=== PATIENT | male | born 1980 | race Caucasian/White ===

== ENCOUNTER → 2020-11-21 13:17 | Outpatient (CLI) | payer OTHER, SELFPAY ==
--- NOTE | ~2020-11-21 | XR_ITS ---
EXAMINATION: XR fl inj wrist LT for MR/CT DATE: 11/21/2020 14:41 INDICATION: Injury of triangular fibrocartilage complex of left wrist. TECHNIQUE: A time-out was performed to verify the patient's name, date of , and procedure to b e performed. The procedure including the risks, benefits, and alternatives was discussed with the pat ient. Risks discussed included bleeding and infection. The patient understood the risks and agreed to proceed. The skin overlying the left radioscaphoid joint was prepped and draped in usual sterile fas hion. Anesthetic was administered with 1% lidocaine subcutaneously. A 23 G needle was advanced unde r fluoroscopic guidance into the joint. Subsequently, injectate consisting of 2 mL of 1:200 Multihan ce, 1:4 1% lidocaine, and 1:4 Omnipaque 240 was instilled. The needle was removed and the entry site was cleaned and dressed. There were no immediate complications. Fluoroscopy exposure time was 0.1 m inutes. The total number of images was 2. FINDINGS: Real-time fluoroscopy demonstrates the needle and contrast in the left radioscaphoid joint. IMPRESSION: 1. Successful left radioscaphoid joint injection of contrast for subsequent MR arthrography. Reviewed, dictated and finalized at location B. CLERK
--- NOTE | ~2020-11-21 | MR_ITS ---
EXAMINATION: MR wrist LT w con DATE: 11/21/2020 15:04 INDICATION: Injury to the angular fiber cartilage complex of the left wrist presenting with left wris t pain post blunt trauma several months prior. TECHNIQUE: Magnetic resonance imaging (MRI) of the left wrist was performed following intra-articula r gadolinium contrast injection and without intravenous contrast. Details of the left wrist joint inj ection have been dictated separately. Sequences included axial, sagittal and coronal T1-weighted FS FSE and T2-weighted FS FSE and coronal FGRE 3D. COMPARISON: None FINDINGS: Intrinsic ligaments: The scapholunate ligament is normal. There is a tiny perforation of the central membranous component of the lunotriquetral ligament. The dorsal and volar components of the ligament appear to remain inta ct. This results in contrast extension into the midcarpal and second-fifth carpal metacarpal joint sp aces although this is not seen on the initial fluoroscopic images following contrast injection which could be consistent with a tiny tear as observed rather than a larger physiologically significant tea r. Triangular fibrocartilage complex (TFCC): There is a partial tear at the foveal attachment of the triangular fibrocartilage complex which exten ds into the dorsal radioulnar ligament. The foveal attachment and volar radioulnar ligaments are norm al. The central fibrocartilaginous disc also appears grossly intact with a smooth articular surface a nd no intrasubstance contrast were extension of contrast into the distal radioulnar joint. The ulnar collateral ligament and ulnotriquetral ligament are normal. There is a frayed appearance to the meni scal homologue. The extensor carpi ulnaris tendon sheath is normal. Extensor wrist: Extensor tendons of the wrist are normal. No tenosynovitis. Flexor wrist: The flexor tendons of the wrist are normal. No abnormality in the carpal tunnel with normal median n erve. Guyon's canal: Guyon's canal including the ulnar nerve and artery are normal. Bones/other: Normal marrow signal. No fracture, erosions, avascular necrosis or abnormal marrow replacing process. Joint spaces are normal with no focal cartilage defects appreciated. Contrast extends into an 8 x 5 x 8 mm ganglion cyst along the palmar aspect of the ulnar styloid process. IMPRESSION: 1. Partial tear of the dorsal ulnar collateral ligament and ulnar styloid attachment of the triangula r fibrocartilage complex. 2. Tiny perforation of the central portion of the lunotriquetral ligament which is of doubtful clinic al significance. 3. Small ganglion cyst along the palmar aspect of the ulnar styloid process. Reviewed, dictated and finalized at location A. LEASE BROKER IMPRESSION: 1. Partial tear of the dorsal ulnar collateral ligament and ulnar styloid attac hment of the triangular fibrocartilage complex. 2. Tiny perforation of the central portion of the lunotriquetral ligament which is of doubtful clinical significance. 3. Small ganglion cyst along the palmar aspect of the ulnar styloid process.
== END ==
PROVIDERS: Visit Provider Internal Medicine
DX: S69.82XA Other specified injuries of left wrist, hand and finger(s), initial encounter (principal); S63.592A Other specified sprain of left wrist, initial encounter; M67.432 Ganglion, left wrist
CPT/HCPCS: 20605; 73222; 77002; A9577; Q9966

== ENCOUNTER 2025-06-15 19:43 | Emergency (ER) | payer OTHER, SELFPAY ==
--- OUTSIDE RECORDS SUMMARY | 2025-06-15 19:45 | XMS_ITS | Clinical Summary ---
Author Organization [facility] Address [address] [place] [address] Care Team Providers Care Advertising Intern Name Role Phone Inna Ham MD Primary Care Provider [phone] Elliott Lock MD Unavailable Janeth Colon MD Unavailable [phone] Allergies No known active allergies Medications hydroCHLOROthia zide (HYDRODIURIL) 50 mg tablet 9 Active anastrozole (ARIMIDEX) 1 mg tablet TAKE 1 TABLET BY MOUTH ONCE A WEEK 1 Active testosterone cypionate (DEPO-TESTOTERO NE) 200 mg/mL injection ADMINISTER 1 ML IN THE MUSCLE 1 TIME A WEEK 5 Active Hospital, Clinic, or Other Facility Administered Medication Ordered Dose Route Frequency Start Date End Date Status lidocaine (XYLOCAINE) 20 mg/mL (2 %) injection 3 mLIndications:Admi nistration of Local Anesthesia 3 mL One-Time Injection 06/04/2025 06/04/2025 Ended methylPREDNISolone acetate (DEPO-medrol) injection 80 mgIndications:Supe rior glenoid labrum lesion of right shoulder, initial encounter 80 mg intra-artic One-Time Injection 06/04/2025 06/04/2025 Ended Active Problems Problem Noted Date Diagnosed Date Impacted cerumen of left ear 06/01/2022 Assessment & Plan (06/01/2022 8:21 AM CDT): Presents with left ear fullness but no pain. Left ear was flushed with moderate amount of cerumen removed. Post ear exam was normal. Encouraged to avoid q-tip use. 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 Clark and then referred to ELLIOTT Patricio at [place] December 2020= I reviewed his MRI of the left wrist dated November 21, 2020. My personal interpretation is that he has a foveal detachment tear of his TFCC, with a central component of the tear as well. Mixed anxiety depressive disorder 10/05/2012 02/13/2021 Overview (02/02/2017): Depression with anxiety Irritability and anger 10/05/201202/13 Overview (02/04/2017): Anger Gynecomastia 10/05/2012 02/13/2021 Overview (12/15/2020): Gynecomastia secondary androgen supplements Encounters Date Type Department Care Team Description 06/04/2025 2:00 PM CDT Office Visit [facility] [address] [place] [address] [address] [place] [id number] Fernando Willingham NP Right shoulder pain, unspecified chronicity (Primary Dx); Instability of right shoulder joint; Superior glenoid labrum lesion of right shoulder, initial encounter 06/04/2025 7:45 AM CDT - 06/04/2025 11:59 PM CDT Hospital Encounter [facility] [address] [place] [address] [address] [place] [id number] Discharge Disposition: Discharge to home or self care from Last 3 Months Immunizations Immunization Administration Dates Next Due Hep B Vaccine 09/26/2006,05/17/2006,04/05/2006 Tdap 02/13/2021 Surgical History Surgery Date Site/Laterality Comments OTHER SURGICAL HISTORY Appendectomy 2003 APPENDECTOMY Appendectomy [facility] Medical History Medical History Date Comments Hx Other Medical gynecomastia Irritability and anger 10/05/2012 Anger Mixed anxiety depressive disorder 10/05/2012 Depression with anxiety Family History Medical History Relation Name Comments Hypertension Father Arthritis Mother Cancer Mother Cancer Other 1 Family history of cancer; Hypertension Other 2 Family history of Hypertension; Relation Name Status Comments Father Mother Other 1 Other 2 Social History Tobacco Use Types Packs/Day Years Used Date Smoking Tobacco: Never Smokeless Tobacco: Never Tobacco Cessation:Counseling Given: Not Answered Alcohol Use Standard Drinks/Week Comments Never 0 (1 standard drink = 0.6 oz pur e alcohol) AUDIT-C Answer Date Recorded Q1: How often do you have a drink containing alc ohol? 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 [employer] Gender Identity Not on file Sexual Orientation Not on file Obstetrics History Last Filed Vital Signs Vital Sign Reading Time Taken Comments Blood Pressure 126/85 06/04/2025 2:20 PM CDT Pulse 75 06/04/2025 2:20 PM CDT Temperature 36.4 C (97.5 F) 06/01/2022 8:01 AM CDT Respiratory Rate 12 02/13/2021 11:46 AM CDT Oxygen Saturation 98% 06/01/2022 8:01 AM CDT Inhaled Oxygen Concentration - - Weight 83.9 kg (185 lb) 06/04/2025 2:20 PM CDT Height 172.7 cm (5' 8) 06/04/2025 2:20 PM CDT Body Mass Index 28.13 06/04/2025 2:20 PM CDT Plan of Treatment Health Maintenance Due Date Last Done Comments Hepatitis C Screening 1981 Varicella Vaccines (1 of 2 - 13+ 2-dose series) 1994 Pneumococcal vaccine <65 (1 of 2 - PCV) 2000 Zoster Vaccine (1 of 2) 2000 HPV Vaccines (1 - 3-dose SCDM series) 2008 Depression Screening 02/13/2022 02/13/2021 Regular Well Visit/Exam 18-64 02/13/2022 02/13/2021 Influenza Vaccine (#1) 2025 DTaP/Tdap/Td Vaccine (2 - Td or Tdap) 02/13/2031 Hepatitis B Screening Completed 09/26/2006 , 05/17/2006, 04/05/2006 Procedures Procedure Name Priority Date/Time Associated Diagnosis Comments XR SHOULDER RIGHT 2 OR MORE VIEWS Routine 06/04/2025 2:16 PM CDT Right shoulder pain, unspecified chronicity DE ARTHROCENTESIS ASPIR&/INJ MAJOR JT/BURSA W/O US Routine 06/04/2025 2:00 PM CDT Superior glenoid labrum lesion of right shoulder, initial encounter from Last 3 Months Results * XR Shoulder Right 2 or More Views (06/04/2025 2:16 PM CDT) Anatomical Region Laterality Modality Upper Extremities, Shoulder Right Digi cristina Radiography Narrative 06/04/2025 2:59 PM CDT X-rays of the shoulder demonstrate no fracture subluxation or osseous lesions. MIRYAM NG is noted us Fernando Willingham NP IMG XR PROCEDURES Edited Result - Final * DE ARTHROCENTESIS ASPIR&/INJ MAJOR JT/BURSA W/O US (06/04/2025 2:00 PM CDT) Narrative Fernando Willingham NP - 06/04/2025 2:00 PM CDT Fernando Willingham NP 06/04/2025 3:03 PM Large Joint (Hip, Knee, Shoulder) Injection: R glenohumeral Performed by: Fernando Willingham NP Authorized by: Fernando Willingham NP Large Joint Injection/Aspiration: Consent Given by: Patient Timeout: prior to procedure the correct patient, procedure, and site was verified Verbal consent obtained: Yes Supporting Documentation: Indications: Pain Procedure Details: Location: Shoulder Site: R glenohumeral Prep: patient was prepped using a clean technique Needle Size: 22 G Approach: Posterior Ultrasound guided: No Fluroscopic guidance: No Medications: 3 mL lidocaine 20 mg/mL (2 %); 80 mg methylPREDNISolone acetate 80 mg/mL Patient tolerance: Patient tolerated the procedure well with no immediate complications Fernando Willingham MARKETING AUTOMATION MANAGER IN CLINIC/BEDSIDE ORDERA BLES Final Result from Last 3 [place] [address] [email or web address] [facility] [id number] [email or web address] [facility] [id number] Advance Directives For more information, please contact: [phone] Documents on File Type Date Recorded Patient [employer] Expl anation ADVANCE DIRECTIVE 02/13/2021 POWER OF A [employer] Care Teams Advertising Intern Relationship Specialty Start Date End Date Inna Ham MD PCP - General 11/21/14 Elliott Lock MD [address] [place] [id number] Surgeon Orthopedic Surgery 12/15/20 Janeth Colon MD [address] [place] [address] Referring Physician Family Medicine 02/13/21
--- OUTSIDE RECORDS SUMMARY | 2025-06-15 19:45 | XMS_ITS | Continuity of Care Document ---
Author Organization [facility] Address [address] [place] [address] [place] [address] Phone Care Team Providers Care Grinder Hardboard Name Role Phone Edison Mead MD, FACS Unavailable Unavailab le Allergies, Adverse Reactions, Alerts Substance Reaction Status Criticality No Known Allergies Active No Inform ation Medications Medication Instructions Dosage Effective Dates (start - stop) Status Comments polymyxin B sulfate 10,000 unit-trimethoprim 1 mg/mL eye drops instill 1 drop by in the right eye 2- 3 times per day for 3-4 days - Active Procedures Procedure Date No Charge Optomap Fundus Photos 021 Office/outpatient Visit, [facility] Advance Directives Directive Yes / No Effective Date File Name No Information Encounters Encounter Description Practice Location Reason(s) For Visit Diagnoses Date Provider Providers Copied on Encounter Office/outpat ient Visit, [facility], [address] [place] [address] [employer] [address], [place], [place], [id number], [place] tel:[phone] SEC Nilton LEDESMA Professional WIE (chief complaint) Abrasion of right cornea, initial encounter Alyce Hogan. [address] [place] [address] [address], [address], [place], [place], [id number], [place]. tel:[phone] Referring Provider: Edison Franklin, [address] [place] [address] [address], [place], [address] . tel:[phone] Family History Family Member Type Diagnosis Age At Onset No Information Payers Payer name Insurance type Covered democrat ID Authoriza tion(s) [employer] CI [id number] Social History Type Description Quantity Date Captured Comments Alcohol Use Details No Caffeine Use Details No Tobacco Use Status Current non-smoker Smoking Status Never smoker Non-Smoking Tobacco Use Details : No Details Available : No Details Available Sex Male Chief Complaint And Reason For Visit From encounter dated '01/06/2021 09:45'. WIE (chief complaint). Description: The 40 year old male presents for evaluation of WIE in the right eye. Patient states he was carrying wood on Tuesday and believes he got a piece of wood in the right eye. Patient the right eye is red, painful, and sensitive to light. Reason For Referral Reason For Referral No Information History Of Present Illness Encounter Date Complaint History Of Prese nt Illness WIE The 40 year old male presents for evaluation of WIE in the right eye. Patient states he was carrying wood on Tuesday and believes he got a piece of wood in the right eye. Patient the right eye is red, painful, and sensitive to light. Functional Status Date Functional Assessmen t No Information Instructions Date Instruction Additional Infor mation Impression/Plan Assessments Type Assessment Date assessment Abrasion of right cornea, initia l encounter Patient Care Teams Name Effective Dates (start - stop) Status Members No Information
[2025-06-15 19:48] VITALS: BP 131/92; PULSE 85; RESP 16; TEMP 36.6; O2SAT 100
--- OUTSIDE RECORDS SUMMARY | 2025-06-15 19:48 | XMS_ITS | Continuity of Care Document ---
Author Organization [facility] Address [address] [place] [address] [place] [address] Phone Care Team Providers Care Senior Datastage Developer Name Role Phone Edison Mead MD, FACS [...] Charge Optomap Fundus Photos 021 Office/outpatient Visit, [facility] Advance Directives Directive Yes / No Effective Date File Name No Information Encounters Encounter Description Practice Location Reason(s) For Visit Diagnoses Date Provider Providers Copied on Encounter Office/outpat ient Visit, [facility], [address] [place] [address] [employer] [address], [place], [place], [id number], [place] tel:[phone] SEC Nilton LEDESMA Professional WIE (chief complaint) Abrasion of right cornea, initial encounter Alyce Hogan. [address] [place] [address] [employer], [address], [place], [place], [id number], [place]. tel:[phone] Referring Provider: Edison Franklin, [address] [place] [address] [employer] [address], [place], [address] . tel:[phone] Family History Family Member Type Diagnosis Age At Onset No Information Payers Payer name Insurance type Covered republican ID Authoriza tion(s) [employer] CI [id number] Social History Type Description Quantity Date Captured [...]
--- NOTE | 2025-06-15 20:18 | ED_ITS ---
HPI - Skin/Abscess/Foreign Bdy General Chief complaint: Skin/Abscess/Foreign Body Stated complaint: Skin Sore Time Seen by Provider: 06/15/25 19:44 Source: patient Mode of arrival: ambulatory Limitations: no limitations History of Present Illness HPI narrative: 44-year-old male presents to [facility] with complaints of area of healing wound, erythema and swelling noted to left side of forehead for the past 5 days. Patient reports that he has been applying Benadryl cream and took 1 tab of leftover amoxicillin with little relief. Patient reports that he has noticed a swelling is moving towards his left eye. Patient denies fever, body aches, chills, nausea vomiting or diarrhea. MD complaint: other (Area of healing wound, swelling and erythema) Onset (ago): day(s) (5) Location: face (Left-side of forehead) Treatments prior to arrival: other (Leftover antibiotic, Benadryl cream) Related Data Home Medications ?Medication ?Instructions ?Recorded ?Confirmed ?Last Taken ?Type anastrozole 1 mg tablet mg 06/15/25 Unknown History hydrochlorothiazide 50 mg tablet mg 06/15/25 Unknown History sertraline 100 mg tablet mg 06/15/25 Unknown History testosterone cypionate 200 mg/mL mg 06/15/25 Unknown History intramuscular oil Allergies Allergy/AdvReac Type Severity Reaction Status Date / Time No Known Allergies Allergy Unverified 06/15/25 19:50 Review of Systems Constitutional: Constitutional: Denies chills, Denies fatigue, Denies fever(s) and Denies weakness ENT: Denies vertigo, Denies dizziness, Denies nasal congestion and Denies sore throat Respiratory: Respiratory: Denies cough, Denies dyspnea and Denies wheezing Gastrointestinal: Gastrointestinal: Denies diarrhea, Denies nausea and Denies vomiting Integumentary/Breasts: Skin/Breast: Denies pruritus Comments: Areas healing wound, erythema and swelling to left side of forehead Neurologic: Denies dizziness, Denies syncope and Denies headache(s) PMFSH Comments At time of signature, I agree with nursing past medical, surgical, social and family history. There is no relevant family history pertinent to the presenting complaint. Exam Const: General: healthy appearing and no acute distress Nutritional Appearance: well nourished Orientation/consciousness: patient oriented x3 Limitations: no limitations Eyes: Conjunctivae: conjunctivae normal Direct Ophthalmoscopy: no photophobia Other: Mild swelling noted to left upper eyelid. Neck: Neck: normal visual inspection and no lymphadenopathy Resp: Effort & Inspection: normal respiratory effort and not labored Auscultation: clear to auscultation bilaterally, no crackles, no rales and no rhonchi Cardio: Rate: regular rate Rhythm: regular rhythm Heart sounds: no murmurs Skin: General skin exam: normal color Other: 1 cm healing wound noted to left side of forehead with surrounding swelling and erythema; minimal swelling noted to left upper eyelid. There is no drainage, bruising or bleeding noted. Neuro: General: patient oriented x3 and moves all extremities Speech: normal speech Extrem: General: normal to inspection Psych: Mental Status: mental status grossly normal Affect: normal affect Attitude: cooperative Course Course Level of Care: Express Care Visit Vital Signs Vital signs: Vital Signs Temperature 36.6 C 06/15/25 19:48 Pulse Rate 85 06/15/25 19:48 Respiratory Rate 16 06/15/25 19:48 Blood Pressure 131/92 H 06/15/25 19:48 Pulse Oximetry 100 06/15/25 19:48 Oxygen Delivery Room Air 06/15/25 19:48 Temperature 36.6 C 06/15/25 19:48 Pulse Rate 85 06/15/25 19:48 Respiratory Rate 16 06/15/25 19:48 Blood Pressure 131/92 H 06/15/25 19:48 Pulse Oximetry 100 06/15/25 19:48 Oxygen Delivery Room Air 06/15/25 19:48 MDM - Skin/Abscess/Foreign Bdy MDM Narrative Medical decision making narrative: Discussed area of infection with patient. Patient agrees take prescriptions as prescribed. Patient agrees to monitor symptoms closely and agrees to proceed to the emergency room if symptoms worsen Differential Diagnosis Differential diagnosis: Likely abscess of skin or subcutaneous tissue, viral exanthem and urticaria Critical Care Time Critical Care Time Critical Care Time: No Discharge Plan Discharge Clinical Impression: Cellulitis Qualifiers: Site of cellulitis: face Qualified Code(s): L03.211 - Cellulitis of face Patient Disposition: Home Condition: Stable Instructions: Antibiotic Form, Cellulitis (ED) Additional Instructions: Take antibiotic and prednisone as prescribed Use antibiotic ointment as prescribed [id number] Motrin or Tylenol as needed for pain Apply cool compress to have swelling Follow-up with primary care provider if symptoms not improved Proceed to the emergency room if symptoms worsen Patient Language: Djiboutian Prescriptions: New sulfamethoxazole-trimethoprim [Bactrim DS] 800-160 mg tablet 1 tablet PO Q12H 7 Days Qty: 14 0RF prednisone 20 mg tablet 40 mg PO DAILY 5 Days Qty: 10 0RF mupirocin [Centany] 2 % ointment 1 applic topical BID 7 Days Qty: 22 0RF No Action anastrozole 1 mg tablet hydrochlorothiazide 50 mg tablet sertraline 100 mg tablet testosterone cypionate 200 mg/mL oil Follow-up/Referrals: UNKNOWN,DOCTOR [Primary Care Provider] -
== END 2025-06-15 20:26 | disposition home or self-care (01) ==
PROVIDERS: Emergency Provider Nurse Practitioner Family
DX: L03.211 Cellulitis of face (principal)
CPT/HCPCS: 99213; G0463